=== PATIENT | female | born 1985 | race African-American/Black ===

== ENCOUNTER 2019-10-02 15:27 | Outpatient (RCR) | payer BC, SELFPAY ==
[2019-10-02] MEDS: METHOTREXATE SODIUM/PF 50 MG/2 ML VIAL 47.5 MG IM ×2 (17:01)
== END 2019-10-27 11:49 | disposition home or self-care (01) ==
LOC: ANHOBOP 15:27
PROVIDERS: PCP Nurse Practitioner; Visit Provider Obstetrics & Gynecology
DX: O02.1 Missed abortion (principal); Z3A.00 Weeks of gestation of pregnancy not specified
CPT/HCPCS: 96372; J9260

== ENCOUNTER 2019-10-09 09:36 | Outpatient (CLI) | payer BC, SELFPAY | END 2019-10-09 09:37 | disposition home or self-care (01) | LOC: ANHLAB 09:39 | PROVIDERS: Visit Provider Obstetrics & Gynecology | DX: O00.90 Unspecified ectopic pregnancy without intrauterine pregnancy (principal); Z3A.00 Weeks of gestation of pregnancy not specified | CPT/HCPCS: 36415; 84702 ==

== ENCOUNTER 2019-10-09 15:12 | Outpatient (CLI) | payer BC, SELFPAY ==
[2019-10-09 16:05] LABS: Hematocrit 33.4 % (37.0-47.0); Mean Corpuscular HGB Conc 32.9 g/dl (32-36); Mean Corpuscular Hemoglobin 27.4 pg (26-34); Mean Corpuscular Volume 83.1 fl (80-100); Mean Platelet Volume 10.5 fl (7.4-10.4); Platelet Count Result 290 k/mm3 (150-375); Red Blood Count 4.02 M/mm3 (4.2-5.4); Red Cell Distribution Width 12.9 % (11.5-14.5); White Blood Count 8.8 K/mm3 (4.5-10.0)
[2019-10-09 16:16] LABS: Alanine Aminotransferase 13 U/L (4-35); Albumin Level 4.2 g/dL (3.5-5.1); Alkaline Phosphatase 42 U/L (38-126); Aspartate Amino Transferase 17 U/L (14-36); Bilirubin,Total 0.2 mg/dL (0.2-1.3); Blood Urea Nitrogen 12 mg/dL (7-17); Calcium 9.1 mg/dL (8.4-10.2); Carbon Dioxide 22 mmol/L (22-30); Chloride 106 mmol/L (98-107); Estimated CRCL calculation 119 ml/min; Estimated Glomerular Filt Rate > 60; Glucose 77 mg/dL (65-105); Potassium 3.9 mmol/L (3.4-5.0); Sodium 136 mmol/L (137-145)
[2019-10-09] MEDS: METHOTREXATE SODIUM/PF 50 MG/2 ML VIAL 47.5 MG IM ×2 (16:52→16:53)
== END 2019-10-09 17:00 | disposition home or self-care (01) ==
LOC: ANHOBOP 15:38 → ANHLDR 15:57
PROVIDERS: Visit Provider Obstetrics & Gynecology
DX: O20.0 Threatened abortion (principal); Z3A.00 Weeks of gestation of pregnancy not specified
CPT/HCPCS: 36415; 80053; 85027; 96372; 99199; J9260

== ENCOUNTER 2019-10-11 08:28 | Outpatient (CLI) | payer BC, SELFPAY | END 2019-10-11 08:29 | disposition home or self-care (01) | LOC: ANHLAB 08:31 | PROVIDERS: PCP Nurse Practitioner; Visit Provider Obstetrics & Gynecology | DX: O00.90 Unspecified ectopic pregnancy without intrauterine pregnancy (principal); Z3A.00 Weeks of gestation of pregnancy not specified | CPT/HCPCS: 36415; 84702 ==

== ENCOUNTER → 2020-04-09 10:43 | Outpatient (CLI) | payer BC, SELFPAY ==
--- NOTE | ~2020-04-09 | US_ITS ---
EXAMINATION: US pelvic complete w TV DATE: 04/09/2020 11:08 INDICATION: Right lower quadrant pain, history of right oophorectomy TECHNIQUE: Multiple transabdominal and endovaginal sonographic images of the pelvis were obtained. COMPARISON: None. FINDINGS: The uterus measures 7 x 3.5 x 6 cm. The endometrial complex measures 5 mm. The right ovary is not visualized however no right adnexal abnormality is seen. The left ovary measures 3.2 x 2.3 x 2 .3 cm. There is normal vascular flow in the left ovary. There is no free fluid in the pelvis. IMPRESSION: 1. No sonographic correlate for the patient's symptoms. Reviewed, dictated and finalized at location A. [employer] DETECTIVE
== END ==
PROVIDERS: Visit Provider Obstetrics & Gynecology
DX: R19.00 Intra-abdominal and pelvic swelling, mass and lump, unspecified site (principal)
CPT/HCPCS: 76830; 76856

== ENCOUNTER 2020-07-15 10:39 | Outpatient (CLI) | payer BC, SELFPAY ==
[2020-07-19 19:52] LABS: HSV 1 IgM Screen Negative (Negative); HSV 2 IgM Screen Negative (Negative)
== END 2020-07-15 10:40 | disposition home or self-care (01) ==
LOC: ANHBWCLAB 10:41
PROVIDERS: PCP Nurse Practitioner; Visit Provider Obstetrics & Gynecology
DX: Z20.2 Contact with and (suspected) exposure to infections with a predominantly sexual mode of transmission (principal)
CPT/HCPCS: 36415; 86695; 86696

== ENCOUNTER 2021-07-31 07:07 | Outpatient (CLI) | payer BC, SELFPAY ==
--- NOTE | ~2021-07-31 | XR_ITS ---
EXAMINATION: XR hysterosalpingogram DATE: 07/31/2021 08:49 INDICATION: Complications of TECHNIQUE: Real-time fluoroscopy was performed and a total of 3 fluoroscopic images were obtained dur ing contrast infusion into the endometrial canal of the uterus by the primary physician. Fluoroscopy exposure time was 0.5 minutes. FINDINGS: The uterine cavity demonstrates normal morphology. The right fallopian tube is not visualized. A thi n normal-appearing proximal portion of the left fallopian tube is visualized. The distal portion of t he left fallopian tube remains unopacified. There is no spillage of contrast into the peritoneum on either side. IMPRESSION: 1. No visualized right fallopian tube and occlusion of the left fallopian tube, the opacified proxima l portion of which appears normal. No intraperitoneal spillage of contrast on either the left or righ t. Reviewed, dictated and finalized at location A. IMPRESSION: 1. No visualized right fallopian tube and occlusion of the left fallopian tube, the opacified proximal portion of which appears normal. No intraperitoneal spi llage of contrast on either the left or right.
[2021-07-31 07:58] LABS: Beta HCG Quantitative < 2.39 mIU/ML
--- NOTE | 2021-09-01 12:06 | W.PM.PROC2 ---
Procedure Note - Detailed Date of Procedure 07/31/21 Pre-op Diagnosis Infertility History of ectopic Post-op Diagnosis Same Procedure Performed Hysterosalpingogram Surgeon Rohan Beth MD Anesthesia None Indications Infertility Findings No spillage observed. Uterine cavity appeared normal. Description of Procedure After informed consent obtained. Speculum inserted. Cervix cleansed with betadine. Catheter outer sleeve inserted into cervical canal. The catheter was inserted into uterine cavity. Balloon inflated to secure catheter. The dye tubing was connected to catheter tubing. The speculum was removed. Radiologist present and once fluoro started the dye was injected. Findings of no flow bilaterally. Normal uterine cavity. The balloon was deflated and the catheter tubing removed. Patient tolerated procedure well. She had cramping during and after procedure which she was informed was expected. Estimated Blood Loss 0 Drains No Packing No Pathology None sent Complications No immediate complications Condition Stable Disposition Other [facility] Billing Surgery - Charge Forward: Surgery Billing
== END 2021-07-31 07:08 | disposition home or self-care (01) ==
PROVIDERS: PCP Nurse Practitioner; Visit Provider Obstetrics & Gynecology
DX: Z01.818 Encounter for other preprocedural examination (principal); Z87.59 Personal history of other complications of pregnancy, childbirth and the puerperium
CPT/HCPCS: 36415; 58340; 74740; 84702; Q9966

== ENCOUNTER 2021-07-31 09:07 | Emergency (ER) | payer BC, SELFPAY ==
[2021-07-31 09:30] VITALS: BP 139/89; PULSE 76; RESP 20; TEMP 36.9; O2SAT 100
--- NOTE | 2021-07-31 09:58 | ED.ABDPAIN ---
HPI - Abdominal Pain General Chief Complaint: Abdominal Pain <KORTNEY Park Last Filed: 07/31/21 15:40> Stated Complaint: abd pain s/p radiology procedure <KORTNEY Park Last Filed: 07/31/21 15:40> Time Seen by Provider: 07/31/21 09:34 <KORTNEY Park Last Filed: 07/31/21 15:40> Source: patient <KORTNEY Park Last Filed: 07/31/21 15:40> Mode of arrival: ambulatory <KORTNEY Park Last Filed: 07/31/21 15:40> Limitations: no limitations <KORTNEY Park Last Filed: 07/31/21 15:40> History of Present Illness HPI narrative: Patient is a 35-year-old female who presents the ED with report of diffuse lower abdominal pain, described as a cramping. Patient reports she had a hysterosalpingogram done this morning by Dr. Beth to determine if her left fallopian tube was patent. She has a history of a right salpingectomy due to an ectopic . Patient reports having shortness of breath and nausea after the procedure, which she attributed to her nerves. Shortness of breath has resolved. She states she does feel nauseous currently but does not want any nausea medicine. She reports having lower abdominal pain, described as cramping since the procedure. She did take an Aleve around 7:45 AM this morning prior to the procedure. She has p.o. Tylenol with her and would like to take this. She does not want any IV or IM pain medicine. No urinary symptoms, fever, chills, vomiting, diarrhea, rectal bleeding, vaginal bleeding. <KORTNEY Park Last Filed: 07/31/21 15:40> Related Data Allergies/Adverse Reactions: Allergies Allergy/AdvReac Type Severity Reaction Status Date / Time No Known Allergies Allergy Verified 07/31/21 09:35 <KORTNEY Park Last Filed: 07/31/21 15:40> Review of Systems Review of Systems: CONSTITUTIONAL: Denies fever, chills, or sweats. CARDIOVASCULAR: Denies chest pain, palpitations, or edema. RESPIRATORY: Reports shortness of breath, resolved. Denies cough. GASTROINTESTINAL: Reports lower abd cramping, nausea. Denies rectal bleeding, vomiting, or diarrhea. GENITOURINARY: Denies dysuria, vaginal bleeding, or hematuria. SKIN: Denies rash or itching. MUSCULOSKELETAL: Denies back pain, joint pain, or myalgia. <Naomi Archuleta PA-C - Last Filed: 07/31/21 15:40> All systems reviewed & are unremarkable except as noted in HPI and below <Naomi Archuleta PA-C - Last Filed: 07/31/21 15:40> PMFSH Past Medical History Medical History: Medical History Asthma History of ectopic x2 History of vaginal delivery x1 Irritable bowel syndrome Migraine <Naomi Archuleta PA-C - Last Filed: 07/31/21 15:40> Surgical History Surgical History: Surgical History History of cryosurgery 2003, cervical History of salpingo-oophorectomy 12/2019, right <Naomi Archuleta PA-C - Last Filed: 07/31/21 15:40> Family History Family History: Family History Mother Hypertension High cholesterol Grandparent Hypertension High cholesterol <Naomi Archuleta PA-C - Last Filed: 07/31/21 15:40> Social History Social History: Social History Smoking status: Never smoker Alcohol intake: current Drinks per week: 1 Substance use: never <Naomi Archuleta PA-C - Last Filed: 07/31/21 15:40> Exam Narrative: GENERAL: Well appearing, well-nourished, non-toxic, in no acute distress. HEAD: Normocephalic, atraumatic. NECK: Supple. No adenopathy, no masses. RESPIRATORY: Airway patent, respirations nonlabored. Clear to auscultation bilaterally, no rales, rhonchi, wheezing. CARDIOVASCULAR: Regular rate and rhythm without murmurs, rubs, or gallops. Peripheral pulses 2+ and equal bilatera
== END 2021-07-31 10:24 | disposition home or self-care (01) ==
PROVIDERS: Emergency Provider Emergency Medicine; PCP Obstetrics & Gynecology
DX: G89.18 Other acute postprocedural pain (principal); R10.30 Lower abdominal pain, unspecified; J45.909 Unspecified asthma, uncomplicated; K58.9 Irritable bowel syndrome, unspecified
CPT/HCPCS: 99283

== ENCOUNTER 2022-09-15 15:39 | Outpatient (CLI) | payer OTHER, SELFPAY ==
--- NOTE | ~2022-09-15 | US_ITS ---
Pelvic ultrasound. Clinical History: Pelvic pain Technique: Realtime transabdominal and transvaginal scanning of the pelvis was performed. Color flow Doppler and Doppler spectral analysis were performed. Findings: The uterus is anteverted. The endometrial stripe has a thickness of 12 mm. No focal mass i s identified. The right ovary is not visualized. No significant right ovarian or adnexal mass is seen. The left ovary measures 4.3 x 2.7 x 4.5 cm. There is a complex cyst in the left ovary, measuring 3.0 cm in diameter. There is a small amount of free fluid in the cul de sac. Impression: 3.0 cm complex left ovarian cyst, likely hemorrhagic cyst, or possibly endometrioma. Small amount of free fluid in the pelvis, nonspecific. Right ovary not visualized. Patient reports history of prior oophorectomy. Reviewed, dictated and finalized at [facility]. Impression: 3.0 cm complex left ovarian cyst, likely hemorrhagic cyst, or possibly endometr ioma. Small amount of free fluid in the pelvis, nonspecific. Right ovary not visualized. Patient reports history of prior oophorectomy.
== END 2022-09-15 15:40 | disposition home or self-care (01) ==
PROVIDERS: PCP Nurse Practitioner; Visit Provider Obstetrics & Gynecology
DX: R10.2 Pelvic and perineal pain (principal); N83.202 Unspecified ovarian cyst, left side
CPT/HCPCS: 76830; 76856

== ENCOUNTER 2023-01-04 08:09 | Outpatient (CLI) | payer OTHER, SELFPAY ==
--- NOTE | ~2023-01-04 | US_ITS ---
EXAMINATION: US pelvic complete w TV DATE: 01/04/2023 09:28 INDICATION: Ovarian cyst. Comparison: Ultrasound dated 09/15/2022 TECHNIQUE: Multiple transabdominal and endovaginal sonographic images of the pelvis performed. FINDINGS: The uterus measures 7.6 x 5.4 x 4.4 cm. The endometrial complex measures 12 mm. The right ovary is surgically absent. Left ovary measures 3.8 x 2.7 x 2.9 cm and contains an irregula r 2 cm cyst. There is free fluid in the pelvis. There are no abnormal masses seen on either side. IMPRESSION: 1. Mild endometrial thickening measuring 12 mm. 2: Left ovarian cyst measuring 2 cm. Reviewed, dictated and finalized at location B.
== END 2023-01-04 08:10 | disposition home or self-care (01) ==
PROVIDERS: PCP Nurse Practitioner; Visit Provider Obstetrics & Gynecology
DX: N83.202 Unspecified ovarian cyst, left side (principal)
CPT/HCPCS: 76830; 76856